=== PATIENT | female | born 1975 | race Caucasian/White ===

== ENCOUNTER 2020-08-07 15:45 | Outpatient (CLI) | payer OTHER, SELFPAY | END 2020-08-07 15:46 | disposition home or self-care (01) | LOC: ANHCOVIDVC 15:46 | DX: Z23 Encounter for immunization (principal) | CPT/HCPCS: 0001A; 91300 ==

== ENCOUNTER 2020-08-28 15:45 | Outpatient (CLI) | payer OTHER, SELFPAY | END 2020-08-28 15:46 | disposition home or self-care (01) | LOC: ANHCOVIDVC 15:45 | DX: Z23 Encounter for immunization (principal) | CPT/HCPCS: 0002A; 91300 ==

== ENCOUNTER 2021-09-04 00:46 | Day surgery (SDC) | payer OTHER, SELFPAY ==
[2021-08-26 12:51] VITALS: BMI 24.9
[2021-09-04 06:40] VITALS: BP 130/73; PULSE 79; RESP 18; TEMP 36.3; O2SAT 100; BMI 25.9
--- NOTE | 2021-09-04 06:54 | WPDGICN ---
Assessment and Plan Assessment and plan (1) Colon cancer screening: Code(s): Z12.11 - Encounter for screening for malignant neoplasm of colon Status: Acute Assessment and Plan: Colonoscopy with possible biopsy or polypectomy or cautery or injection of substances. GI Consult Note Consult date/time: 09/04/21 06:54 HPI: Tete Burt is a 45 year old female who was referred for colon cancer screening. she has not had any particular bowel problems. She does not see blood her stools. There is no family history of colon cancer Review of Systems Review of Systems: All systems reviewed & are unremarkable except as noted in HPI and below PMFSH Past Medical History Medical History Asthma Hypothyroid Rheumatoid arthritis Social History Social History Substance use type: does not use Living arrangements: with family Meds Home Medications and Allergies Home Medications Medication Instructions Recorded Confirmed Type Linzess 145 mg PO DAILY 08/26/21 09/04/21 History adalimumab [Humira Pen] 40 mg SUBCUT DAILY 08/26/21 09/04/21 History bupropion HCl 300 mg PO DAILY 08/26/21 09/04/21 History methotrexate sodium 2.5 mg PO TID 08/26/21 09/04/21 History thyroid (pork) [[place] Thyroid] 90 mg PO DAILY 08/26/21 09/04/21 History venlafaxine 150 mg PO DAILY 08/26/21 09/04/21 History Allergies Allergy/AdvReac Type Severity Reaction Status Date / Time No Known Allergies Allergy Other Uncoded 09/04/21 07:04 Exam Const: General: alert Orientation/consciousness: patient oriented x3 Resp: Auscultation: clear to auscultation bilaterally Cardio: Rhythm: regular rhythm GI: GI Palp: Yes Soft to palpation and No Tenderness to palpation present (GI) Neuro: General: patient oriented x3
[2021-09-04] MEDS: LACTATED RINGERS 1,000 ML 150 ML IV CONT (07:12)
--- NOTE | 2021-09-04 07:41 | WPDANESEPPF ---
Anes - Initial Pre Proc Eval Procedure: Operation Date: 09/04/21 08:00 Proposed Procedures p Screening Colonoscopy - Rojelio Hanna MD Date/Time: 09/04/21 07:41 Surgeon: Rojelio Hanna MD Pre Op Diagnosis: neoplasm screening Patient Data Age: 45 Gender: F Height: 1.63 m Weight: 68.5 kg Last Vital Signs Temp 36.3 C L 09/04/21 06:40 Pulse 79 09/04/21 06:40 Resp 18 09/04/21 06:40 BP 130/73 09/04/21 06:40 Pulse Ox 100 09/04/21 06:40 Allergies Allergy/AdvReac Type Severity Reaction Status Date / Time No Known Allergies Allergy Other Uncoded 09/04/21 07:04 Home Medications Medication Instructions Recorded Confirmed Type Linzess 145 mg PO DAILY 08/26/21 09/04/21 History adalimumab [Humira Pen] 40 mg SUBCUT DAILY 08/26/21 09/04/21 History bupropion HCl 300 mg PO DAILY 08/26/21 09/04/21 History methotrexate sodium 2.5 mg PO TID 08/26/21 09/04/21 History thyroid (pork) [[place] Thyroid] 90 mg PO DAILY 08/26/21 09/04/21 History venlafaxine 150 mg PO DAILY 08/26/21 09/04/21 History Patient hx anesthesia problems: none Family hx anesthesia problems: none Results Review: All pre-operative results and documents have been reviewed as part of the pre-operative evaluation. PENDING SALE TO [facility] Past Medical History Medical History Asthma Hypothyroid Rheumatoid arthritis Social History Social History Substance use type: does not use Living arrangements: with family Anes - Eval Final PreProcedure Day of Procedure 09/04/21 07:41 Patient weight: normal Heart: regular rate and rhythm Lungs: clear to auscultation Airway: Mallampati scale class II Neurological: alert and oriented Last oral intake: >/= 8 hours ASA classification: II Emergent: no Anesthetic plan: proceed Anesthesia type and monitoring: general GIVS and standard monitoring Results Review: All pre-operative results and documents have been reviewed as part of the pre-operative evaluation. Informed Consent: The patient's anesthetic plan and its attendant risks and benefits were discussed with the patient/family/POA. Questions were solicited and answers provided to the satisfaction of the patient/family/POA.
[2021-09-04 08:16] VITALS: BP 96/56; PULSE 83; RESP 16; O2SAT 100
[2021-09-04 08:26] VITALS: BP 124/86; PULSE 75; RESP 16; O2SAT 100
[2021-09-04 08:36] VITALS: BP 132/91; PULSE 82; RESP 26; O2SAT 100
== END 2021-09-04 08:43 | disposition home or self-care (01) ==
PROVIDERS: Visit Provider Internal Medicine Gastroenterology
PROC: 0DJD8ZZ Inspection of Lower Intestinal Tract, Via Natural or Artificial Opening Endoscopic (ICD-10-PCS; CPT 45378; principal; 2021-09-04 08:00)
DX: Z12.11 Encounter for screening for malignant neoplasm of colon (principal); J45.909 Unspecified asthma, uncomplicated; E03.9 Hypothyroidism, unspecified; M06.9 Rheumatoid arthritis, unspecified
CPT/HCPCS: 45378; J2704; J7120

== ENCOUNTER 2022-01-06 10:28 | Outpatient (CLI) | payer OTHER, SELFPAY ==
--- NOTE | ~2022-01-06 | MR_ITS ---
EXAMINATION: MR brain/brain stem wo/w con DATE: 01/06/2022 11:33 INDICATION: Memory loss. 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 TECHNIQUE: Magnetic resonance imaging (MRI) of the brain and brainstem was performed without and with 13 mL MultiHance intravenous contrast. COMPARISON: None. FINDINGS: There is a small focus of increased T2-weighted signal intensity in the left frontal lobe d eep white matter which is normal as an isolated finding. 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 There is no intracranial hemorrhage or acute ischemic infarct. The ventricles are normal in size. The orbits are normal. The mastoid air cells are normal. There is mild mucosal thick ening in the ethmoid sinuses. IMPRESSION: 1. Normal brain. Reviewed, dictated and finalized at location A. IMPRESSION: 1. Normal brain.
== END 2022-01-06 10:29 | disposition home or self-care (01) ==
PROVIDERS: Visit Provider Internal Medicine
DX: D84.821 Immunodeficiency due to drugs (principal); Z79.899 Other long term (current) drug therapy
CPT/HCPCS: 70553; A9577

== ENCOUNTER 2022-02-19 09:26 | Outpatient (CLI) | payer OTHER, SELFPAY ==
--- NOTE | ~2022-02-19 | MM_ITS ---
EXAMINATION: MM screening landen BI w jigar HISTORY: Screening mammogram TECHNIQUE: Craniocaudal and mediolateral oblique 3-D tomosynthesis images were obtained and synthetic 2-D images were generated. CAD analysis was submitted and interpreted. COMPARISON: No prior mammogram is available for comparison at this institution. BREAST PARENCHYMAL COMPOSITION: The breasts are heterogeneously dense, which may obscure small masses . FINDINGS: There is no suspicious mass, calcification, or architectural distortion to suggest malignan cy in either breast. IMPRESSION: 1. No mammographic evidence of malignancy. 2. Recommend routine screening mammography in one year. BI-RADS Category 1: Negative Reviewed, dictated and finalized at location D.
== END 2022-02-19 09:27 | disposition home or self-care (01) ==
PROVIDERS: PCP Internal Medicine; Visit Provider Internal Medicine
DX: Z12.31 Encounter for screening mammogram for malignant neoplasm of breast (principal)
CPT/HCPCS: 77063; 77067

== ENCOUNTER 2024-12-15 13:48 | Outpatient (CLI) | payer OTHER, SELFPAY ==
--- NOTE | ~2024-12-15 | MM_ITS ---
EXAMINATION: MM screening landen BI w jigar HISTORY: Screening TECHNIQUE: Craniocaudal and mediolateral oblique 3-D tomosynthesis images were obtained and synthetic 2-D images were generated. CAD analysis was submitted and interpreted. COMPARISON: 02/19/2022 BREAST PARENCHYMAL COMPOSITION: Dense: The breasts are heterogeneously dense, which may obscure small masses FINDINGS: There is no evidence of suspicious mass, calcification, or architectural distortion to sugg est malignancy in either breast. There has been no suspicious interval change. IMPRESSION: 1. No mammographic evidence of malignancy. 2. Recommend routine screening mammography in one year. BI-RADS Category 1: Negative Reviewed, dictated and finalized at location B.
--- OUTSIDE RECORDS SUMMARY | 2024-12-15 14:00 | XMS_ITS | Encounter Summary ---
Author Organization [facility] Address [address] [place] [address] Care Team Providers Care Printing Press Operator Name Role Phone Jamil Ramírez MD Primary Care Provider Encounter Details Date Type Department Care Team (Late st Contact Info) Description 11/03/2024 Results Follow-Up [facility] - Rheumatology [address] [place] [id number] [facility] [place] [address] Social History Tobacco Use Types Packs/Day Years Used Date Smoking Tobacco: Never Smokeless Tobacco: Never PHQ-2 Answer Date Recorded Patient Health Questionnaire-2 Score 4 09/30/2024 Comments No Sex and Gender Information Value Date Recorded Sex Assigned at Female 09/29/2024 12:11 PM CDT Legal Sex Female 6:19 AM [employer] Gender Identity Not on file Sexual Orientation Not on file documented as of this encounter Plan of Treatment Upcoming Encounters Date Type Department Care Team (Late st Contact Info) Description 01/20/2025 3:20 PM CDT Office Visit [facility] - Rheumatology [address] [place] [id number] [facility] [place] [address] documented as of this encounter Visit Diagnoses Not on filedocumented in this encounter Care Teams Printing Press Operator Relationship Specialty Start Date End Date Jamil Ramírez MD [address] [place] [phone] PCP - General Internal Medicine 03/10/23 documented as of this encounter
--- OUTSIDE RECORDS SUMMARY | 2024-12-15 14:00 | XMS_ITS | Encounter Summary ---
Author Organization [facility] Address [address] [place] [address] Care Team Providers Care Fuselage Framer Name Role Phone Jamil Ramírez MD Primary Care Provider [phone] Reason for Visit * Reason Onset Date Comments Clarification 01/15/2022 Encounter Details Date Type Department Care Team (Late st Contact Info) Description 01/15/2022 Telephone [facility] Primary Care [address] [place] [address] Jamil Ramírez MD [address] [place] [address] [address] [place] [address] Clarification Social History Tobacco Use Types Packs/Day Years Used Date Smoking Tobacco: Never Smokeless Tobacco: Never Alcohol Use Standard Drinks/Week Comments Yes 8 (1 standard drink = 0.6 oz pur e alcohol) 8 drinks a week Comments Unknown Sex and Gender Information Value Date Recorded Sex Assigned at Not on file Legal Sex 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 No / Unsure 01/10/2022 9:08 AM CDT documented as of this encounter Miscellaneous Notes * Telephone Encounter - Mireya Addison - 01/15/2022 9:19 AM CDT Name of PCP or Prescribing Provider: Jamil Ramírez MD Next office visit: Visit date not found The pt's pharmacy has called requesting clarification on the following prescription, venlafaxine (EFFEXOR XR) 150 mg Extended Release 24 hour capsule. Please contact the pharmacy to change the following information: This is coming up as a high dose alert and the pharmacy is wanting to verify dosage. Please call back and advise. [id number] [place] [facility] [address] [place] [address] Call back #: [phone] documented in this encounter Plan of Treatment Not on file documented as of this encounter Visit Diagnoses Not on filedocumented in this encounter Care Teams Fuselage Framer Relationship Specialty Start Date End Date Jamil Ramírez MD [address] [place] [phone] PCP - General Internal Medicine 07/29/21 documented as of this encounter
--- OUTSIDE RECORDS SUMMARY | 2024-12-15 14:00 | XMS_ITS | Clinical Summary ---
Author Organization [facility] Address [address] [place] [address] Care Team Providers Care Real Estate Branch Manager Name Role Phone Jamil Ramírez MD Primary Care Provider [phone] Source Comments [facility],non-owned Affiliates and Associated Physician Practices is amultiple site organization consisting of ambulatory clinics and hospital sitesin [place], [place], [place] and [place]. This disclosure is being madepursuant to the Care Everywhere program and may not contain all information available regarding this patient. Last updated 18.[facility] Allergies Active Allergy Reactions Criticality Noted Date Comments Celecoxib Rash Medium 05/12/2024 Medications * This document contains information received from the source organization and may not represent a complete record from that organization. * Be aware that medications may not be up to date on this document. Alwaysverify current medications with the patient. venlafaxine XR 24hr (Effexor XR) 150 MG capsule 12/25/19 23 Active buPROPion XL 24hr (Wellbutrin-X L) 150 MG tablet 02/06/20 23 Active levothyroxine (Synthroid) 112 MCG tablet 12/11/19 23 Active EPINEPHrine (Epipen) 0.3 MG/0.3ML auto-injector pen Inject 0.3 mL into muscle once daily as needed 12/18/19 22 Active vortioxetine (Trintellix) 20 MG tablet Active QUEtiapine (SEROquel) 25 MG tablet Take 1 (one) tablet by mouth at bedtime 08/01/19 24 Active folic acid (Folvite) 1 MG tablet Take 1 (one) tablet by mouth once daily 90 tablet 4 06/20/19 25 Active amLODIPine (Norvasc) 2.5 MG tablet Take 1 (one) tablet by mouth once daily 03/24/20 24 Active losartan (Cozaar) 50 MG tablet Take 1 (one) tablet by mouth once daily 06/20/19 25 Active predniSONE (Deltasone) 10 MG tablet Take 1 (one) tablet by mouth SEE ADMIN INSTRUCTIONS 06/20/19 25 Active hydroxychloro quine (Plaquenil) 200 MG tablet Take 1 (one) tablet by mouth 2 times daily 60 tablet 4 10/01/19 25 Active methotrexate 2.5 MG tabletIndicat ions:Rheumato id arthritis involving multiple joints (HCC) Take 6 (six) tablets by mouth every 7 days (once a week) 72 tablet 10/01/19 25 Active gabapentin (Neurontin) 100 MG capsule Take 4 (four) capsules by mouth at bedtime 360 capsule 1 10/31/19 25 Active abatacept (Orencia ClickJect) 125 MG/ML auto-injector penIndication s:Rheumatoid arthritis involving multiple joints (HCC) INJECT 1 PEN UNDER THE SKIN EVERY 7 DAYS 4 mL 5 12/07/19 25 Active abatacept (Orencia ClickJect) 125 MG/ML auto-injector penIndication s:Rheumatoid arthritis involving multiple joints (HCC) Inject 1 mL subcutaneously every 7 days Pen 4 mL 5 07/13/19 25 2024 Discontinued Active Problems Problem Noted Date Diagnosed Date 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 06/24/2024 Encounters Date Type Department Care Team Description 12/06/2024 Refill [facility] - Rheumatology [address] [place] [address] [phone] Lisbet Connors MD Refill Request 11/03/2024 Results Follow-Up [facility] - Rheumatology [address] [place] [id number] Lisbet Connors MD 10/28/2024 Telephone [facility] - Rheumatology [address] [place] [address] [phone] Lisbet Connors MD Medication Issue 10/19/2024 Orders Only [facility] - Rheumatology [address] [place] [id number] Lisbet Connors MD LFT elevation 10/10/[address] [address] Lisbet Connors MD MEDICATION REFILL 10/05/2024 Results Follow-Up [address] [id number] Lisbet Connors MD 09/30/2024 3:20 PM CDT Office Visit [address] [phone] Lisbet Connors MD Pain in both hands (Primary Dx); Rheumatoid arthritis involving multiple joints (HCC); Sjogren's syndrome, with unspecified organ involvement (HCC) 09/28/[address] [phone] Lisbet Connors MD Appointment 09/28/[address] [phone] Paola Gilmore RN Coordination Of Care 09/28/[address] [phone] Lisbet Connors MD Coordination Of Care 09/28/2024 Travel from Last 3 Months Social History Tobacco Use Types Packs/Day Years Used Date Smoking Tobacco: Never Smokeless Tobacco: Never Tobacco Cessation:Counseling Given: Not Answered PHQ-2 Answer Date Recorded Patient Health Questionnaire-2 Score 4 09/30/2024 Comments No Sex and Gender Information Value Date Recorded Sex Assigned at Female 09/29/2024 12:11 PM CDT 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 Gender Identity Not on file Sexual Orientation Not on file Last Filed Vital Signs Vital Sign Reading Time Taken Comments Blood Pressure 125/76 09/30/2024 3:04 PM CDT Pulse 94 09/30/2024 3:04 PM CDT Temperature - - Respiratory Rate 16 09/30/2024 3:04 PM CDT Oxygen Saturation 100% 09/30/2024 3:04 PM CDT Inhaled Oxygen Concentration - - Weight 66.6 kg (146 lb 12.8 oz) 09/30/2024 3:04 PM CDT Height 162.6 cm (5' 4) 03/11/2024 10:4 0 AM CDT Body Mass Index 25.2 03/11/2024 10:40 AM CDT Plan of Treatment Upcoming Encounters Date Type Department Care Team (Late st Contact Info) Description 01/20/2025 3:20 PM CDT Office Visit [facility] - Rheumatology [address] [place] [phone] Lisbet Connors MD [address] [place] [phone] Health Maintenance Due Date Last Done Comments COLOGUARD (AGES 45-75) - COLON CA SCREENING 1973 COLON MONITORING 1973 COLONOSCOPY - COLON CA SCREENING 1973 CT COLONOGRAPHY - COLON CA SCREENING 1973 Colorectal Cancer Screening 1973 FIT - COLON CA SCREENING 1973 FLEX SIG - COLON CA SCREENING 1973 LIPID TESTING 1973 HIV SCREENING 1988 DTAP/TDAP/TD VACCINES (1 - Tdap) 1992 HEPATITIS B VACCINE (1 of 3 - 19+ 3-dose series) 1992 PNEUMOCOCCAL VACCINE 50+ (1 of 2 - PCV) 1992 ZOSTER VACCINE (1 of 2) 1992 PAP SMEAR 08/14/2001 08/14/1998 COVID-19 VACCINE (3 - Pfizer risk series) 09/25/2020 08/28/2020, 08/18/2020, 08/07/2020 MAMMOGRAM 02/20/2024 02/19/2022, 01/26/2013 INFLUENZA VACCINE (#1) 2025 4, 03/29/2022, 04/18/2013 SCREENING FOR DIABETES 11/03/2027 5, 10/03/2024, 05/16/2024, Additional history exists DEPRESSION SCREENING Completed 06/24/2024 HEPATITIS C SCREENING Completed 10/03/2024, 024 HIB VACCINE Aged Out No longer eligi ble based on patient's age to complete this topic HPV VACCINE Aged Out No longer eligi ble based on patient's age to complete this topic MENINGOCOCCAL (Group B) VACCINE SHARED DECISION-MAKING Aged Out No longer eligible based on patient's age to complete this topic MENINGOCOCCAL GROUPS A/C/Y/W VACCINE Aged Out No longer eligible based on patient's age to complete this topic Procedures Procedure Name Priority Date/Time Associated Diagnosis Comments CBC W AUTO DIFFERENTIAL Routine 11/02/2024 2:28 PM CDT LFT elevation COMPREHENSIVE METABOLIC PANEL Routine 11/02/2024 2:26 PM CDT LFT elevation QUANTIFERON-TB GOLD PLUS 1-TUBE 10/03/2024 10:35 AM CDT HEPATITIS SCREEN ACUTE Routine 10:35 AM CDT Rheumatoid arthritis involving multiple joints (HCC) C-REACTIVE PROTEIN Routine 10/03/2024 10 :35 AM CDT Rheumatoid arthritis involving multiple joints (HCC) ERYTHROCYTE SEDIMENTATION RATE Routine 10/03/2024 10:35 AM CDT Rheumatoid arthritis involving multiple joints (HCC) COMPREHENSIVE METABOLIC PANEL Routine 10/03/2024 10:35 AM CDT Rheumatoid arthritis involving multiple joints (HCC) CBC W AUTO DIFFERENTIAL Routine 10/03/2024 10:35 AM CDT Rheumatoid arthritis involving multiple joints (HCC) CYTOLOGY SMEAR PAP EDEL 08/14/1998 10 :30 AM ONLINE MARKETING SPECIALIST from Last 3 Months or Most Recently Relevant to Health Maintenance Results * (ABNORMAL) CBC WITH DIFFERENTIAL (11/02/2024 2:28 PM CDT) Only the most recent of2 resultswithin the time period is included. Pathologist [facility] White Blood Cell Count 6.6 3.8 - 10.8 Thousand/u L [facility] RBC 3.98 3.80 - 5.10 Million/uL [facility] Hemoglobin 12.4 11.7 - 15.5 g/dL [facility] Hematocrit 39.1 35.0 - 45.0 % [facility] MCV 98.2 80.0 - 100.0 fL [facility] MCH 31.2 27.0 - 33.0 pg [facility] MCHC 31.7(L) 32.0 - 36.0 g/dL [facility] Comment: For adults, a slight decrease in the calculated MCHC value (in the range of 30 to 32 g/dL) is most likely not clinically significant; however, it should be interpreted with caution in correlation with other red cell parameters and the patient's clinical condition. RDW 11.8 11.0 - 15.0 % [facility] Platelet Count 328 140 - 400 Thousand/u L [facility] MPV 9.2 7.5 - 12.5 fL [facility] Neutrophil Absolute 3986 1500 - 7800 cells/uL [facility] Lymphocytes Absolute 1762 850 - 3900 cells/uL [facility] Absolute Monocytes 686 200 - 950 cells/uL [facility] Eosinophils Absolute 132 15 - 500 cells/uL [facility] Basophils Absolute 33 0 - 200 cells/uL [facility] Granulocytes % 60.4 % [facility] Lymphocytes % 26.7 % [facility] Monocytes % 10.4 % [facility] Eosinophils % 2.0 % [facility] Basophils % 0.5 % [facility] Comment: Test Performed at: [email or web address] [address] MICHAEL CORDERO MD Blood BLOOD SPECIMEN / Unknown 11/02/2024 2:28 PM CDT 11/02/2024 2:29 PM CDT Lisbet Connors MD LAB - HEMATOLOGY ORDERABLES [place] Result [facility] [address] [place] [address] * COMPREHENSIVE METABOLIC PANEL (11/02/2024 2:26 PM CDT) Only the most recent of2 resultswithin the time period is included. Pathologist [facility] Glucose 85 65 - 99 mg/dL [facility] Comment: Fasting reference interval BUN 19 7 - 25 mg/dL [facility] Comment: Verified by repeat analysis. Creatinine 0.82 0.50 - 1.03 mg/dL [facility] eGFR by Cystatin C 87 > OR = 60 mL/min/1. 73m2 [facility] BUN/Creatinine Ratio SEE NOTE: 6 - 22 (calc) [facility] Comment: Not Reported: BUN and Creatinine are within reference range. Sodium 136 135 - 146 mmol/L [facility] Potassium 3.9 3.5 - 5.3 mmol/L [facility] Comment: Verified by repeat analysis. Chloride 100 98 - 110 mmol/L [facility] Comment: Verified by repeat analysis. CO2 27 20 - 32 mmol/L [facility] Calcium 9.9 8.6 - 10.4 mg/dL [facility] Protein Total 7.1 6.1 - 8.1 g/dL [facility] Albumin 4.6 3.6 - 5.1 g/dL [facility] Globulin Total 2.5 1.9 - 3.7 g/dL (calc) [facility] Albumin/Globulin Ratio 1.8 1.0 - 2.5 (calc) [facility] Bilirubin Total 0.4 0.2 - 1.2 mg/dL [facility] Alkaline Phosphatase 49 37 - 153 U/L [facility] AST 22 10 - 35 U/L [facility] ALT 16 6 - 29 U/L [facility] Comment: REPORT COMMENT: FASTING:NO Test Performed at: [email or web address] [address] [address] MICHAEL CORDERO MD Blood BLOOD SPECIMEN / Unknown 11/02/2024 2:26 PM CDT 11/02/2024 2:27 PM CDT Lisbet Connors MD LAB - CHEMISTRY ORDERABLES Final Result [facility] [address] [place] [address] * QUANTIFERON-TB GOLD PLUS 1-TUBE (10/03/2024 10:35 AM CDT) [facility] QuantiFERON TB Gold Plus NEGATIVE NEGATIVE [facility] Comment: Negative test result. M. tuberculosis complex infection unlikely. NIL 0.07 IU/mL [facility] MITOGEN MINUS NIL RESULT 8.28 IU/mL [facility] TB1-NIL 0.04 IU/mL [facility] TB2-NIL 0.05 IU/mL [facility] Comment: The Nil tube value reflects the background interferon gamma immune response of the patient's blood sample. This value has been subtracted from the patient's displayed TB and Mitogen results. Lower than expected results with the Mitogen tube prevent false-negative Quantiferon readings by detecting a patient with a potential immune suppressive condition and/or suboptimal pre-analytical specimen handling. The TB1 Antigen tube is coated with the M. tuberculosis-specific antigens designed to elicit responses from TB antigen primed CD4+ helper T-lymphocytes. The TB2 Antigen tube is coated with the M. tuberculosis-specific antigens designed to elicit responses from TB antigen primed CD4+ helper and CD8+ cytotoxic T-lymphocytes. For additional information, please refer to https://education.[employer]/faq/FHC891 (This link is being provided for informational/ educational purposes only.) REPORT COMMENT: FASTING:NO Test Performed at: [place] [address] MICHAEL CORDERO MD 10/03/2024 10:3 5 AM CDT 10/03/2024 10:36 AM CDT us Lisbet Connors MD LAB - CHEMISTRY ORDERABLES Final Result Performing Organization Address [facility] [place] [address] * C-REACTIVE PROTEIN (10/03/2024 10:35 AM CDT) Pathologist [facility] C-Reactive Protein <3.0 <8.0 mg/L [facility] Comment: Test Performed at: [facility] [email or web address] [address] MICHAEL CORDERO MD Blood BLOOD SPECIMEN / Unknown 10/03/2024 10:35 AM CDT 10/03/2024 10:36 AM CDT us Lisbet Connors MD LAB - CHEMISTRY ORDERABLES Final Result Performing Organization Address [facility] [place] [address] * ERYTHROCYTE SEDIMENTATION RATE (10/03/2024 10:35 AM CDT) Erythrocyte Sedimentation Rate Westergren 17 < OR = 30 mm/h [facility] Comment: Test Performed at: [place] [address] MICHAEL CORDERO MD Blood BLOOD SPECIMEN / Unknown 10/03/2024 10:35 AM CDT 10/03/2024 10:36 AM CDT us Lisbet Connors MD LAB - HEMATOLOGY ORDERABLES [facility] l Result [facility] [address] [place] [address] * HEPATITIS SCREEN ACUTE (10/03/2024 10:35 AM CDT) Hepatitis A Virus Antibody IgM NON-REACTI VE NON-REACT [facility] Comment: For additional information, please refer to http://[employer]ters/faq/YJR940 (This link is being provided for informational/ educational purposes only.) Hepatitis B Virus Surface Antigen NON-REACTI VE NON-REACT [facility] Comment: For additional information, please refer to http://[employer]/faq/PRA344 (This link is being provided for informational/ educational purposes only.) Hepatitis B Core Virus Antibody IgM NON-REACTI VE NON-REACT [facility] Comment: For additional information, please refer to http://[employer]/faq/LPW461 (This link is being provided for informational/ educational purposes only.) Hepatitis C Antibody NON-REACTI VE NON-REACT [facility] Comment: HCV antibody was non-reactive. There is no laboratory evidence of HCV infection. In most cases, no further action is required. However, if recent HCV exposure is suspected, a test for HCV RNA (test code 47211) is suggested. For additional information please refer to http://[employer]ters/faq/KTM23q7 (This link is being provided for informational/ educational purposes only.) Test Performed at: [email or web address] [place] [address] [place] [address] MICHAEL CORDERO MD Blood BLOOD SPECIMEN / Unknown 10/03/2024 10:35 AM CDT 10/03/2024 10:36 AM CDT Lisbet Connors MD LAB - CHEMISTRY ORDERABLES Final Result [facility] [address] [place] [address] * CYTOLOGY SMEAR PAP (08/14/1998 10:30 AM ONLINE MARKETING SPECIALIST) Result CASE NUMBER [id number] Comment: ORDERING PHYSICIAN LIZETH UNDERWOOD SPECIMEN TYPE PAP Smear Date 08/23/1998 Procedure Cervical/Endocervical, 1 smear received Specimen Adequacy Satisfactory for Evaluation but Limited Obscuring inflammation. Categorization Within Normal Limits Snomed. 08/28/1998 1423 <1> Alberene Stone Setter Umang Stephen (ASCP) PAP Footnote The PAP smear is only a screening procedure to aid in the detection of cervical cancer and its precursors. It is not a diagnostic procedure and should not be used as the sole means to detect cervical cancer. Both false negative and false positive results have been experienced. MISCELLANEOUS SAMPLES / Unknown 08/14/1998 10:30 AM ONLINE MARKETING SPECIALIST 08/24/1998 10:30 AM ONLINE MARKETING SPECIALIST Historical Provider LAB - PATHOLOGY/CYTOLOGY ORDERABLES Final Result from Last 3 Months or Most Recently Relevant to Health Maintenance Insurance Care Teams Real Estate Branch Manager Relationship Specialty Start Date End Date Jamil Ramírez MD [address] [place] [phone] PCP - General Internal Medicine 03/10/23
--- OUTSIDE RECORDS SUMMARY | 2024-12-15 14:01 | XMS_ITS | Clinical Summary ---
Author Organization [facility] Address [address] [place] [address] Care Team Providers Care Historical Records Administrator Name Role Phone Jamil Ramírez MD Primary Care Provider [phone] Allergies No known active allergies Medications thyroid, pork, ([place] Thyroid) 90 mg tablet Take 1 Tablet (90 mg) by mouth daily. 90 Tablet 3 07/29/19 22 Active Additional Information Patient not taking.Reported on 03/24/2024 lubiprostone (AMITIZA) 24 mcg Capsule TAKE 1 CAPSULE (24 MCG) BY MOUTH 2 TIMES DAILY WITH MEALS. 60 Capsule 3 12/12/19 22 Active Additional Information Patient not taking.Reported on 03/24/2024 EPINEPHrine (EPIPEN) 0.3 mg/0.3 mL Auto-Injector Inject 0.3 mL (0.3 mg) by intramuscular injection 1 time daily as needed for Anaphylaxis. 2 Each 3 12/18/19 22 Active etanercept (EnbreL SureClick) 50 mg/mL (1 mL) Pen Injector Inject 1 mL (50 mg) by subcutaneous injection every 7 days. 1 mL 10/30/19 24 Active folic acid (FOLVITE) 1 mg tablet Take 1 mg by mouth daily. 03/11/20 24 Active venlafaxine (EFFEXOR XR) 150 mg Extended Release 24 hour capsule Take 2 Capsules (300 mg) by mouth daily. 180 Capsule 3 06/20/19 25 Active methotrexate (RHEUMATREX) 2.5 mg Tablet Take 5 Tablets (12.5 mg) by mouth every 7 days. 60 Tablet 3 06/20/19 25 Active losartan (COZAAR) 50 mg tablet Take 1 Tablet (50 mg) by mouth daily. 100 Tablet 3 06/20/19 25 Active predniSONE (DELTASONE) 10 mg tablet TAKE 1 TABLET (10 MG) BY MOUTH SEE ADMINISTRATION INSTRUCTIONS. 60 MG X 1 D 50 MG X 1D, 40 MG X 1D, 30 MG X 1 D, 20 MG X 1D, 10 MG X 1D 21 Tablet 1 06/20/19 25 Active amLODIPine (NORVASC) 2.5 mg tablet Take 1 Tablet (2.5 mg) by mouth daily. 90 Tablet 3 07/22/19 25 Active levothyroxine 112 mcg tablet Take 1 Tablet (112 mcg) by mouth daily in the morning. 90 Tablet 3 07/22/19 25 Active buPROPion HCL (WELLBUTRIN XL) 150 mg Extended Release 24 hour tabletIndicatio ns:Recurrent major depressive disorder, remission status unspecified Take 1 Tablet (150 mg) by mouth daily in the morning. 100 Tablet 3 07/22/19 25 Active QUEtiapine (SEROquel) 25 mg tabletIndicatio ns:Recurrent major depressive disorder, remission status unspecified Take 1 Tablet (25 mg) by mouth daily at bedtime. 100 Tablet 3 11/02/19 25 Active Active Problems Patient Care Coordination No te Formatting of this note migh t be different from the original. Prev 07/18/22 Problem Noted Date Diagnosed Date Seropositive rheumatoid arthritis 07/29/2021 Sjogren's syndrome 07/29/2021 Other specified hypothyroidism 07/29/2021 Recurrent major depressive disorder 07/29/2021 Memory loss 07/29/2021 Encounters Date Type Department Care Team Description 12/13/2024 External Device Data ST[facility] ABSTRACTION Provider, Abstract 11/22/2024 External Device Data [facility] ABSTRACTION Provider, Abstract 11/16/2024 External Device Data [facility] ABSTRACTION Provider, Abstract 10/20/2024 External Device Data [facility] ABSTRACTION Provider, Abstract 10/18/2024 External Device Data ST[facility] ABSTRACTION Provider, Abstract from Last 3 Months Immunizations Immunization Administration Dates Next Due (ADACEL/BOOSTRIX)(10 YR UP) TDAP VACCINE, 0.5ML, IM 10/16/2014 (PFIZER KULWANT)(5-11 YRS PRIMA RY SERIES) COVID-19 VACCINE - EMERGENCY USE AUTHORIZATION, MRNA, KULWANT(PF) 10 MCG/0.2 ML IM SUSP 08/18/2020,08/07/2020 (PFIZER)(12 YR UP) COVID-19 VACCINE - EMERGENCY USE AUTHORIZATION, MRNA, [id number](PF) 30 MCG/0.3 ML IM SUSP 08/28/2020,08/07/2020 (PNEUMOVAX 23)(50 YRS UP) PN EUMOCOCCAL POLYSACCHARIDE (PPV23) 0.5 ML, IM 07/29/2021 (PREVNAR 20)(6 WKS UP) PNEUM OCOCCAL CONJUGATE VACCINE 20-VALENT (PCV20), POLYSACCHARIDE [id number] CONJUGATE, ADJUVANT 0.5 ML (PF) IM 10/30/2023 (SHINGRIX)(50 YRS UP) ZOSTER VACCINE RECOMBINANT, 0.5 ML, IM 10/27/2022,08/11/2022 INFLUENZA VACCINE TRIVALENT SPLIT VIRUS, (6 MOS UP), 0.5ML (PF), IM 03/24/2024 Influenza Seasonal Unspecified Formulation IM Influenza Seasonal Unspecified Formulation PF IM 04/18/2013 Family History Medical History Relation Name Comments Asthma Father Timbo Lozano Depression Father Timbo Lozano Skin Cancer Father Timbo Lozano Cancer Maternal Grandfather Bone cancer High Cholesterol Mother Kiah Lozano Hyperlipidemia Mother Kiah Lozano Hypertension Mother Kiah Lozano Asthma Son 2 Brendan Albuterol inhal er when needed Relation Name Status Comments Daughter Alive Father Timbo Lozano Alive Maternal Grandfather Bone cancer Maternal Grandmother Mother Kiah Lozano Alive Paternal Grandfather Paternal Grandmother Sister Alive Son 1 Alive Son 2 Brendan Social History Tobacco Use Types Packs/Day Years Used Date Smoking Tobacco: Never Passive Smoke Exposure: Never Smokeless Tobacco: Never Tobacco Cessation:Counseling Given: No Alcohol Use Standard Drinks/Week Comments Yes 8 (1 standard drink = 0.6 oz pur e alcohol) 8 drinks a week Comments No Sex and Gender Information Value Date Recorded Sex Assigned at Not on file Legal Sex Female 2:11 PM [employer] Gender Identity Not on file Sexual Orientation Not on file Last Filed Vital Signs Vital Sign Reading Time Taken Comments Blood Pressure 132/88 03/24/2024 10:07 AM CDT Pulse 76 03/24/2024 9:59 AM CDT Temperature 36.8 C (98.2 F) 01/10/2022 9:14 AM CDT Respiratory Rate 18 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 Oxygen Saturation 98% 03/24/2024 9:59 AM CDT Inhaled Oxygen Concentration - - Weight 68.9 kg (152 lb) 03/24/2024 9:59 AM CDT Height 162.6 cm (5' 4) 03/24/2024 9:59 AM CDT Body Mass Index 26.09 03/24/2024 9:59 AM CDT Plan of Treatment Health Maintenance Due Date Last Done Comments HEPATITIS B VACCINES (1 of 3 - 19+ 3-dose series) 1992 HPV/Cotest (21-29) 1994 HPV/Cotest (30-65) 09/27/2003 FIT-DNA Q 3 years 2018 FIT/FOBT Q 1 year 2018 Flex Sig/CT Colonography Q 5 years 2018 COVID-19 Vaccine (3 - Pfizer risk series) 09/25/2020 08/28/2020, 08/18/2020, 08/07/2020, Additional history exists BREAST CANCER SCREENING 02/19/2023 02/19/2022, 01/26 Preventative Visit- Commercial 06/01/2024 0 10/30/2023, 08/31/2023, 07/18/2022, Additional history exists DTAP/TDAP/TD VACCINES (2 - T d or Tdap) 10/16/2024 10/16/2014 INFLUENZA VACCINE (#1) 2024 , 03/29/2022, 04/18/2013 CERVICAL CANCER SCREENING 08/30/2026 PAP SMEAR 08/30/2026 08/31/2023 Pre-Diabetes and Diabetes Screening 11/03/2027 11/02/2024, 05/16/2024 COLORECTAL SCREENING 09/05/2031 09/04/2021 Colorectal Cancer Screening 09/05/2031 ZOSTER VACCINE Completed 10/27/2022, 08/11/2022 Procedures Procedure Name Priority Date/Time Associated Diagnosis Comments VITAMIN B12 LEVEL Routine 11/02/2024 2:3 2 PM CDT Vitamin B12 deficiency (non anemic) T4 FREE Routine 11/02/2024 2:32 PM CDT Other specified hypothyroidism HEMOGLOBIN A1C Routine 11/02/2024 2:32 PM CDT Abnormal glucose LIPID PANEL Routine 11/02/2024 2:32 PM CDT Encounter for routine adult health examination with abnormal findings TSH Routine 11/02/2024 2:32 PM CDT Encounter for routine adult health examination with abnormal findings MAMMO 3D DANNY SCREEN BILAT W OR WO CAD Routine 02/19/2022 COLONOSCOPY REPORT Routine 09/04/2021 from Last 3 Months or Most Recently Relevant to Health Maintenance Results * TSH (11/02/2024 2:32 PM CDT) TSH 0.49 mIU/L [facility] Comment: Reference Range > or = 20 Years 0.40-4.50 Ranges First trimester 0.26-2.66 Second trimester 0.55-2.73 Third trimester 0.43-2.91 Test Performed at: [facility] [address] [place] [address] Will Hollingsworth MD Blood 11/02/2024 2:32 PM CDT 11/02/2024 2:32 PM CDT Jamil Ramírez MD CHEMISTRY ORDERABLES Final Re sult Performing Organization Address City/[facility] Co de Phone Number [facility] [phone] [facility] [id number] [place] [phone] * T4 FREE (11/02/2024 2:32 PM CDT) Pathologist [facility] T4 FREE 1.0 0.8 - 1.8 ng/dL [facility] Comment: Test Performed at: [facility] [address] [place] [address] Will Hollingsworth MD Blood 11/02/2024 2:32 PM CDT 11/02/2024 2:32 PM CDT Jamil Ramírez MD CHEMISTRY ORDERABLES Final Re sult [facility] [phone] [facility] [place] [address] [facility] [place] [address] * HEMOGLOBIN A1C (11/02/2024 2:32 PM CDT) HEMOGLOBIN A1C 5.1 <5.7 % of total Hgb [facility] Comment: For the purpose of screening for the presence of diabetes: <5.7% Consistent with the absence of diabetes 5.7-6.4% Consistent with increased risk for diabetes (prediabetes) > or =6.5% Consistent with diabetes This assay result is consistent with a decreased risk of diabetes. Currently, no consensus exists regarding use of hemoglobin A1c for diagnosis of diabetes in children. According to [place] Diabetes Association (ADA) guidelines, hemoglobin A1c <7.0% represents optimal control in non- diabetic patients. Different metrics may apply to specific patient populations. Standards of Medical Care in Diabetes(ADA). ESTIMATED AVERAGE GLUCOSE (MG/DL) 100 mg/dL [facility] [employer] ESTIMATED AVERAGE GLUCOSE (MMOL/L) 5.5 mmol/L [facility] Comment: FASTING:NO FASTING: NO Test Performed at: [facility] [address] [place] [address] Will Hollingsworth Blood 11/02/2024 2:32 PM CDT 11/02/2024 2:32 PM CDT us Jamil Ramírez MD CHEMISTRY ORDERABLES Final Re sult Performing Organization Address City/[facility]/ZIP Code Phone Number [facility] [phone] [facility] [employer] [facility] [address] [place] [address] * VITAMIN B12 LEVEL (11/02/2024 2:32 PM CDT) Pathologist [facility] VITAMIN B12 626 200 - 1100 pg/mL [facility] Comment: FASTING:NO FASTING: NO Test Performed at: [facility] [place] [address] [address] [facility] [address] Will Hollingsworth MD Blood 11/02/2024 2:32 PM CDT 11/02/2024 2:32 PM CDT us Jamil Ramírez MD CHEMISTRY ORDERABLES Final Re sult [facility] [phone] [facility] [address] [place] [address] * (ABNORMAL) LIPID PANEL (11/02/2024 2:32 PM CDT) CHOLESTEROL 240(H) <200 mg/dL [facility] HDL 101 > OR = 50 mg/dL [facility] TRIGLYCERIDE 46 <150 mg/dL [facility] LDL CALCULATED 125(H) mg/dL (calc) [facility] Comment: Reference range: <100 Desirable range <100 mg/dL for primary prevention; <70 mg/dL for patients with CHD or diabetic patients with > or = 2 CHD risk factors. LDL-C is now calculated using the Blayne-Seo calculation, which is a validated novel method providing better accuracy than the Friedewald equation in the estimation of LDL-C. Blayne SS et al. FENG. 2013;310(19): 4489-9470 (http://education.[employer]/faq/JTH348) CHOL/HDL RATIO 2.4 <5.0 (calc) [facility] NON-HDL CHOLESTEROL 139(H) <130 mg/dL (calc) [facility] Comment: For patients with diabetes plus 1 major ASCVD risk factor, treating to a non-HDL-C goal of <100 mg/dL (LDL-C of <70 mg/dL) is considered a therapeutic option. FASTING:NO FASTING: NO Test Performed at: [facility] [address] [facility] [place] [address] Will Hollingsworth MD Blood 11/02/2024 2:32 PM CDT 11/02/2024 2:32 PM CDT us Jamil Ramírez MD CHEMISTRY ORDERABLES Final Re sult [facility] [phone] [facility] [place] [address] [phone] * MAMMO SCRN BILAT 3D DANNY W OR WO CAD (02/19/2022) Anatomical Region Laterality Modality Breast Bilateral Mammography us Abstract Provider MAMMO ORDERABLES Edited Result - Final * COLONOSCOPY REPORT (09/04/2021) us Abstract Provider GI PROCEDURE ORDERABLES Edited Result - Final EXTERNAL LAB from Last 3 Months or Most Recently Relevant to Health Maintenance Insurance CORE [id number] [facility] Address: [address] [address] Care Teams Historical Records Administrator Relationship Specialty Start Date End Date Jamil Ramírez MD [address] [place] [phone] PCP - General Internal Medicine 07/29/21
--- OUTSIDE RECORDS SUMMARY | 2024-12-15 14:01 | XMS_ITS | Data Portability ---
Author Organization [facility] JOSE ROBERTOClover Bassett Address [address] [place] [address] Care Team Providers Care Liquor Blender Name Role Phone CASIE CROW Weigher And Crusher MONO LEDEZMA Primary Care Provider Assessment No assessment recorded. Plan of Treatment Reminders Order Date Submit Date Provider Last Modified By Organization Details Last Modified Time Details Appointments None recorded. Lab pap, IG + reflex HR HPV (16+18) 2016 017 [facility], [address] [place] [address], [address], 7 18:35:56 Referral urogynecolo gist referral 2018 019 [facility] Information Department, [address] [place] [address], [address], 9 15:03:55 Procedures None recorded. Surgeries None recorded. Imaging MAMMO, screening, digital, bilateral 2018 Yonathan Fish (Radiology), [place], [address], 9 14:46:24 MAMMO, screening, digital, bilateral 2016 017 ojie Fish (Radiology), [address] [place], [address], 7 16:20:37 Medication Orders None recorded. Patient TargetsNo targets recorded. Patient Instructions Encounter Date Encounter Id Patient Instructions Last Modified By Organization Details Last Modified Time 04/13/2017 [id number] learning about breast cancer screening [email or web address] Not available 04/13/2017 17:06:27 Reason for Referral Urogynecologist Referral for Cystocele Referring Physician: Dilcia Casiano, BEHAVIORAL HEALTH SPECIALIST, Encounter Date: 10/12/2018 Results Created Date Observation Date Name Description Value Unit Range Abnormal Flag Note LastModifiedBy Organization Detail LastModifiedTime 04/13/20 17 04/15/2017 pap, IG + refle x HR HPV (16+1 8) diagnosis: Ann Marie t NEGAT SOCORRO FOR INTRA EPITH ELIAL LESIO N AND ALEDYA MONTERO . Not Available [facility] ([facility]) [address] [facility], [place], [address], 04/15/2017 18:35:56 04/13/20 17 04/15/2017 pap, IG + refle x HR HPV (16+1 8) specimen adequacy: Ann Marie t Satis facto ry for evalu ation . Endoc ervic al and/o r squam ous metap lasti c cells (endo cervi karley compo nent) are prese nt. Not Available [facility] ([facility]) [address] [facility], [place], [address], 04/15/2017 18:35:56 04/13/20 17 04/15/2017 pap, IG + refle x HR HPV (16+1 8) clinician provided ICD10: Ann Marie montez Z01.4 19 Not Available [facility] ([facility]) [address] [facility], [place], [address], 04/15/2017 18:35:56 04/13/20 17 04/15/2017 pap, IG + refle x HR HPV (16+1 8) performed by: Ann Marie english, Cytot yonatan marinelli t (ASCP ) Not Available [facility] ([facility]) [address] [place], [address], 04/15/2017 18:35:56 04/13/20 17 04/15/2017 pap, IG + refle x HR HPV (16+1 8) . . Not Available [facility] ([facility]) [address] [place], [address], 04/15/2017 18:35:56 04/13/20 17 04/15/2017 pap, IG + refle x HR HPV (16+1 8) note: Commen t The Pap smear is a scree yesenia test desig srini to aid in the detec tion of adriane ligna nt and malig nant condi tions of the uteri ne cervi x. It is not a diagn ostic proce dure and shoul d not be used as the sole means of detec ting cervi karley cance r. Both false -posi tive and false -nega tive repor ts do occur . Not Available [facility] ([facility]) [address] [place], [address], 04/15/2017 18:35:56 04/13/20 17 04/15/2017 pap, IG + refle x HR HPV (16+1 8) test methodology: Commen t This liqui d based ThinP rep(R ) pap test was scree srini with the use of an image guide julián bernard. Not Available [facility] ([facility]) [address] [place], [address], 04/15/2017 18:35:56 04/13/20 17 04/15/2017 pap, IG + refle x HR HPV (16+1 8) HPV, high-risk Negati ve negati ve This high- risk HPV test detec ts thirt een high- risk types (16/1 8/31/ 33/35 /39/4 5/51/ 52/56 /58/5 9/68) witho ut diffe renti ation . Not Available [facility] ([facility]) [address] [place], [address], 04/15/2017 18:35:56 Result Notes None recorded. Problems Name Problem SNOMED Code Status Onset Date Resolution Date Notes Provider Name and Address Organization Details Recorded Time Depressive disorder 29806763 Active 2016 Tali herring [facility] 7 16:06:31 Hypothyroidism 66876132 Active 2016 Tali herring [facility] 7 16:06:41 Rheumatoid arthritis 54346824 Active 2016 Tali herring [facility] 7 16:06:52 Problem Notes None recorded. Procedures Surgical History Date Name Laterality Status Provider Name and Address Organization Details Recorded Time 04/13/2017 Date of Last Pap Smear completed Dayanara Carranza [facility] 10/11/2018 16:51:48 Imaging Results None recorded. Procedure Notes None recorded. Medical Equipment None Reported. Allergies No known drug allergies Medications Name Sig Start Date Stop Date Status Note LastModified by Organization Details LastModified Time Guffey Thyroid 60 mg tablet active Not Available Not Available No t Available venlafaxine ER 75 mg capsule,exte nded release 24 hr active Not Available Not Available Not Available Guffey Thyroid 90 mg tablet active Not Available Not Available No t Available fluorouracil 5 % topical cream active Not Available Not Available Not Available venlafaxine ER 150 mg capsule,exte nded release 24 hr Take 2 capsules every day by oral route. active Not Available Not Available No t Available methotrexate sodium 2.5 mg tablet active Not Available Not Available No t Available folic acid 1 mg tablet Take 2 tablets every day by oral route. active Not Available Not Available No t Available bupropion HCl XL 300 mg 24 hr tablet, extended release Take 1 tablet every day by oral route. active Not Available Not Available No t Available Tri-Sprintec (28) 0.18 mg(7)/0.215 mg(7)/0.25 mg(7)-0.035 mg tablet Take 1 tablet every day by oral route. active Not Available Not Available No t Available Humira active pt states she takes 50mg Not Available Not Available Not Available Humira Pen 40 mg/0.8 mL subcutaneous kit active Not Available Not Available Not Available methotrexate 2.5 mg tablet Take 5 tablets every week by oral route. active Not Available Not Available No t Available Trintellix 20 mg tablet active Not Available Not Available Not Available Vitals Date Recorded Body height Body mass index (BMI) Body weight Systolic And Diastolic Provider Name and Address Organization Details Last Updated DateTime 10/12/2018 162.56 cm 26.4 kg/m2 74425.22 g 122/80 mm[Hg] Dayanara Carranza [facility] 10/12/2018 10:12:24 Date Recorded Body weight Body mass index (BMI) Body height Systolic And Diastolic Provider Name and Address Organization Details Last Updated DateTime 04/13/2017 42215.19 g 25.5 kg/m2 162.56 cm 130/100 mm[Hg] Tali Davies [facility] 04/13/2017 15:57:32 Social History Question Answer Notes LastModified by [employer] Details LastModified Time Tobacco Smoking Status Never Smoker Tali Davies nevaeh, [facility] 04/13/2017 16:11:36 Is Blood Transfusion Acceptable In An Emergency? Yes Information not available 04/13/2017 What Is Your Level Of Caffeine Consumption? Heavy Information not available 04/13/2017 How Much Tobacco Do You Chew? None Information not available 04/13/2017 What Type Of Diet Are You Following? REGULAR Information not available 04/13/2017 Which Illicit Or Recreational Drugs Have You Used? Denies Information not available 04/13/2017 Education 2 Year College Information not available 04/13/2017 Live Alone Or With Others? With Others Information not available 04/13/2017 What Was The Date Of Your Most Recent Tobacco Screening? 10/12/2018 Information not available 12/23/2018 How Many Children Do You Have? 2 Information not available 04/13/2017 Performs Monthly Self-breast Exam? No Information no t available 04/13/2017 Do You Use Protection During Sex? Always Information not available 04/13/2017 What Is Your Relationship Status? Information not available 04/13/2017 Seat Belts Used Routinely Yes Information not available 04/13/2017 Are You Sexually Active? Yes Information not available 04/13/2017 General Stress Level Low Information not available 04/13/2017 Do You Use Sunscreen Routinely? Yes Information not available 04/13/2017 Sex: Unknown Functional Status Question Answer Note LastModified by Organizat ion Details LastModified Time What is your level of alcohol consumption? Occasional Information not available 04/13/2017 Are you currently employed? Yes Information not available 04/13/2017 What is your exercise level? Occasional Information not available 04/13/2017 Mental Status None recorded. Family History Relationship Description Onset Age of this Age Resolved Age Notes LastModified by Organization Details LastModified Time Father Hypertensive disorder [place] Not available 2016 16:11:01 Mother Hypertensive disorder [place] Not available 2016 16:11:01 Mother Hypercholest erolemia [place] Not available 2016 16:11:24 Maternal Grandfather Hypertensive disorder [place] Not available 2016 16:11:01 Maternal Grandfather Hypercholest erolemia [place] Not available 2016 16:11:24 Maternal Grandmother Hypertensive disorder [place] Not available 2016 16:11:01 Maternal Grandmother Hypercholest erolemia [place] Not available 2016 16:11:24 Medical History Condition Response Other N High Blood Pressure N Breast Cancer N Thyroid Problems Y Kidney or Bladder Problems N GI Problems N Depression Y Blood Clots N Lung Disease N Acne N Breast Problem N Eating Disorder N Anemia N Anesthesia Complications N Headaches/Migraines N Anxiety Disorder N Diabetes N Ovarian Cancer N Muscle, Joint, or Bone Problems N Blood Transfusions N Seizures/Epilepsy N Polyps N Infertility N Acid Reflux (GERD) N Cancer N Abuse/Domestic Violence N Asthma Y Endometriosis N High Cholesterol N Hepatitis N Liver Disease N Heart Disease N Pre-Eclampsia N Osteoporosis N Gynecological History Statement/Question Response Flow Moderate On BCP's at Conception? N STIs/STDs N HPV Vaccine N Duration of Flow (days) 5 Most Recent Mammogram Age at Menarche 10 Current Control Method None Age at First Child 27 Sexually Active? Y Menses Monthly Y Date of Last Pap Smear 04/13/2017 Sexual Problems? N LMP Definite Desired Control Method BCPs Obstetrics History GPAL:G 3 P 2 0 1 2 Type Value Multiple Births 0 Full Term 2 Induced 0 Spontaneous 1 Premature 0 Living 2 Ectopics 0 Total 3 Past Encounters Encounter ID Performer Location Encounter Start Date Encounter Closed Date Diagnosis/Indication Diagnosis SNOMED-CT Code Diagnosis ICD10 Code Diagnosis Note [id number] [facility] [address] [place] [address] 04/13/2017 15:23:03 04/17/2017 16:20:37 Gynecologic examination 53728839 Z01.419 Last pap 2009. Pap done. Screening for malignant neoplasm of breast 910317841 Z12.31 [id number] MD Alli Chatterjee 14 OB [address] [facility] [address] [place] [address] 10/12/2018 09:59:58 10/13/2018 08:51:16 Routine gynecologic examination done 1304142730 9101 Z01.419 -Educated on the importance of SBE and awareness. -Discussed the importance of cervical cancer screenings . Pap smear NILM and HPV negative 04/13/17 -Educated osteoporos is prevention including calcium rich foods, weight bearing exercise. -Discussed the importance of exercise. -Nutrition discussed and the importance of a diet rich in fruits, vegetable, whole grains, and lean proteins. -Counseled regarding prevention of STD's and screening options, condom use and prevention . -Advised avoidance of tobacco, alcohol, and drugs. -Discussed sun safety and the importance of sunscreen. Screening mammography 24 531004 Z12.31 Patient educated on the importance of annual breast cancer screenings with mammograph y. Patient given order to schedule mammogram. Cystocele 784931241 N81. 10 Grade 2. Discussed management options. Pt wanting surgery. Pt referred to urogyn. Pt given informatio n to schedule appt to be seen within next 2-3 weeks and call office if unable to get in. Pt educated on warning signs and given ER precaution s Female str ess incontinence 20087789 N39.3 Pt reports she voiding before appt and is unable to provide sample today. Pt referred to urogyn. Health Concerns Section Related Observation LastModified by Organization Detai ls LastModified Time None Recorded Concern Status LastModified by Organization Details LastModified Time None Recorded Advance Directives Directive None Recorded Payers Insurance Date Sequence Insurance Name Policy Number Policy Cao Covered Member ID Cao Member ID Guarantor Name 10/12/2018 1 [employer] (PPO) [id number] Hubert Burt [id number] Tete Burt Notes Date Note Type Note Provider Name and Address Organization Details Recorded Time 04/13/2017 text/html Annual GYNReport ed bypatient.Menstrual cycle:Normal menses Urinary symptoms:No hematuria; No incontinence Vulva:No genital lesion Vagina:Normal vaginal discharge Breast:No breast pain; No breast lump; No nipple discharge Current Contraception:Wants to discuss contraceptive options Sexual complaints:No sexual complaints; No pain during intercourse; Normal libido Menopausal Symptoms:No menopausal symptoms; Normal vaginal lubrication Psychological symptoms:No depression; No anxiety; No PMDD Preventive measures:Encourage self breast examination; Encourage regular exercise; Encourage no tobacco use; Encourage regular mammograms starting age 40 Casie Crow [facility] [place] - [facility] 04/15/2017 14:10:42 10/12/2018 text/html Annual GYNReport ed bypatient.Menstrual cycle:Normal menses Urinary symptoms:No hematuria;Stress incontinence Vulva:No genital lesion Vagina:Normal vaginal discharge Breast:No breast pain; No breast lump; No nipple discharge Current Contraception:Satisfie d with current contraception; Monogamous relationship; Condoms Sexual complaints:No sexual complaints; No pain during intercourse; Normal libido Menopausal Symptoms:No menopausal symptoms; Normal vaginal lubrication Psychological symptoms:No depression; No anxiety; No PMDD Preventive measures:Encourage self breast examination; Encourage regular exercise; Encourage no tobacco use; Followed with Q3 year pap smear and high risk HPV typing; Needs to schedule mammogramPelvic ProlapseReported bypatient.Quality:feel ing of something bulging from vagina Severity:intermittent Duration:present for 1-6 months; has noted for months Onset/Timing:degree waxes and wanes Context:no asthma; no history of chronic idiopathic constipation Aggravating factors:coughing Associated Symptoms:no suprapubic pain; no urinary urgency; no urinary frequency; no dysuria; complete emptying of bladder; no acute urinary retention; no post-void dribbling; no vaginal discharge; no unexplained vaginal bleeding; no abdominal pain; no constipation; feeling of complete evacuation of stool; can pass stool without need for finger pressure in the vagina; (normal) unable to restrain bowel movement; no finger disimpaction needed; no fecal incontinence;pelvic pressure;feeling of uterus falling out worse when lifting or coughing;stress incontinence Pt is here for well women exam. Pt reports she had been having intermittent feeling of something bulging from her vagina for the last 6 months. KENDAL Gannon Attn: Accounting,[address] , [place], [address], [place] - [facility] 10/12/2018 13:33:51 OBGyn Episode Ob Episode Information Episode Created Date Number of Fetuses Patient Bloodtype Patient rh Status Prepregnancy Weight lbs Domestic Partner Domestic Partner Phone Father Name Livestock Commission Agent Status 04/13/20 17 1 CLOSED Fetus Data First Name Last Name Admitted to NICU Weight (g) Sex Living Outcome Pediatric Complications Fetus ID Race Codes Race Delivery Type 3628.73 6 M Full Term [id number] Vaginal Pedro Calculation Initial Pedro Date Initial Exam Date Initial Exam Provider Initial Ultrasound Date Last Menstrual Period Date Ultra Sound Weeks Gestation 0 Eighteen To Twenty Week Pedro Update Ultra Sound Date Fundal Height At Umbil Quickening Date Ultra Sound Latest Weeks Gestation Final Pedro Confirmed By Final Pedro Confirmed Date Final Pedro Date Ultra Sound Latest Days Gestation 0 0 Menstrual History Last Menstrual Date Menses Monthly On Bcp Conception Prior Menses Frequency Hcg Plus Date Menarche Onset Age Delivery Information Delivery Date Delivery Type Labor Anesthesia Weeks Gestation Incision Type Labor Labor Length Hrs Delivered By Post Complications Tubal Sterilization Discharge Date Comments 5 Discharge Information Feeding Method Contraceptive Method Maternal HG B and HCT Levels Ob Episode Information Episode Created Date Number of Fetuses Patient Bloodtype Patient rh Status Prepregnancy Weight lbs Domestic Partner Domestic Partner Phone Father Name Livestock Commission Agent Status 04/13/20 17 1 CLOSED Fetus Data First Name Last Name Admitted to NICU Weight (g) Sex Living Outcome Pediatric Complications Fetus ID Race Codes Race Delivery Type 3628.73 6 F Full Term [id number] Vaginal Pedro Calculation Initial Pedro Date Initial Exam Date Initial Exam Provider Initial Ultrasound Date Last Menstrual Period Date Ultra Sound Weeks Gestation 0 Eighteen To Twenty Week Pedro Update Ultra Sound Date Fundal Height At Umbil Quickening Date Ultra Sound Latest Weeks Gestation Final Pedro Confirmed By Final Pedro Confirmed Date Final Pedro Date Ultra Sound Latest Days Gestation 0 0 Menstrual History Last Menstrual Date Menses Monthly On Bcp Conception Prior Menses Frequency Hcg Plus Date Menarche Onset Age Delivery Information Delivery Date Delivery Type Labor Anesthesia Weeks Gestation Incision Type Labor Labor Length Hrs Delivered By Post Complications Tubal Sterilization Discharge Date Comments 3 Discharge Information Feeding Method Contraceptive Method Maternal HG B and HCT Levels Ob Episode Information Episode Created Date Number of Fetuses Patient Bloodtype Patient rh Status Prepregnancy Weight lbs Domestic Partner Domestic Partner Phone Father Name Livestock Commission Agent Status 04/13/20 17 1 CLOSED Fetus Data First Name Last Name Admitted to NICU Weight (g) Sex Living Outcome Pediatric Complications Fetus ID Race Codes Race Delivery Type , Spontane ous [id number] Pedro Calculation Initial Pedro Date Initial Exam Date Initial Exam Provider Initial Ultrasound Date Last Menstrual Period Date Ultra Sound Weeks Gestation 0 Eighteen To Twenty Week Pedro Update Ultra Sound Date Fundal Height At Umbil Quickening Date Ultra Sound Latest Weeks Gestation Final Pedro Confirmed By Final Pedro Confirmed Date Final Pedro Date Ultra Sound Latest Days Gestation 0 0 Menstrual History Last Menstrual Date Menses Monthly On Bcp Conception Prior Menses Frequency Hcg Plus Date Menarche Onset Age Delivery Information Delivery Date Delivery Type Labor Anesthesia Weeks Gestation Incision Type Labor Labor Length Hrs Delivered By Post Complications Tubal Sterilization Discharge Date Comments 2 Discharge Information Feeding Method Contraceptive Method Maternal HG B and HCT Levels
== END 2024-12-15 13:49 | disposition home or self-care (01) ==
PROVIDERS: PCP Internal Medicine; Visit Provider Internal Medicine
DX: Z12.31 Encounter for screening mammogram for malignant neoplasm of breast (principal)
CPT/HCPCS: 77063; 77067